=== PATIENT | female | born 1990 | race Caucasian/White ===

== ENCOUNTER → 2024-07-01 11:05 | Outpatient (REF) | payer OTHER, SELFPAY | LOC: HWRAD 11:05 | PROVIDERS: ATTENDING PHYSICIAN Student in an Organized Health Care Education/Training Program | DX: R22.1 Localized swelling, mass and lump, neck (principal) | CPT/HCPCS: 76536 ==

== ENCOUNTER 2024-08-16 15:29 | Emergency (ER) | payer OTHER, SELFPAY ==
[2024-08-16 15:42] VITALS: BP 157/79
[2024-08-16 16:11] LABS: % Basophils 0.4 % (0-2); % Eosinophils 3.5 % (0-6); % Immature Granulocytes 0.1 % (0-0.5); % Lymphocytes 19.9 % (20.5-51.1); % Monocytes 5.3 % (1.7-9.3); % Neutrophils 70.8 % (42.2-75.2); Absolute Eosinophils 0.3 10^3/uL (0-0.7); Absolute Lymphocytes 1.5 10^3/uL (1.2-3.4); Absolute Monocytes 0.4 10^3/uL (0.1-0.6); Absolute Neutrophils 5.2 10^3/uL (1.4-6.5); Hematocrit 39.8 % (37.0-47.0); Hemoglobin 13.4 g/dL (12.0-16.0); Mean Corp Hgb Conc. 33.7 g/dL (33.0-37.0); Mean Corpuscular Hgb 29.2 pg (27.0-31.0); Mean Corpuscular Volume 86.7 fL (81.0-99.0); Mean Platelet Volume 10.1 fL (7.4-10.4); Nucleated Red Blood Cells % 0 %; Platelet Count 333 10^3/uL (130-400); Red Blood Cell Count 4.59 10^6/uL (4.20-5.40); Red Cell Dist. Width 12.6 % (11.5-14.5); White Blood Cell Count 7.3 10^3/uL (4.8-10.8)
[2024-08-16 16:21] LABS: HCG, Serum Qualitative Screen Negative
[2024-08-16 16:26] LABS: ALT (SGPT) 16 U/L (0-35); AST (SGOT) 20 U/L (14-36); Albumin 4.6 g/dl (3.5-5.0); Alkaline Phosphatase 51 U/L (38-126); Blood Urea Nitrogen 13 mg/dl (7-17); Carbon Dioxide 27 mmol/L (22-30); Chloride 102 mmol/L (98-107); Glucose 117 mg/dl (70-99); Potassium 3.9 mmol/L (3.5-5.1); Sodium 139 mmol/L (135-145); Total Bilirubin 0.3 mg/dl (0.2-1.3); Total Protein 7.3 g/dl (6.3-8.2); eGFR > 60.00
[2024-08-16 16:33] LABS: Troponin I < 0.012 ng/ml
[2024-08-16 18:00] VITALS: BP 129/87
[2024-08-16 18:01] VITALS: BMI 32.4
--- NOTE | 2024-08-16 18:20 | EDRN ---
Dr. Schwartz in room w/pt at this time
[2024-08-16 19:16] LABS: TSH Reflex To Free T4 1.84 uIU/ml (0.47-4.68)
--- NOTE | 2024-08-16 19:22 | ED.GENMED ---
History of Present Illness
General
Chief Complaint: Heart Rate Problem
Time Seen by Provider: 08/16/24 18:01
History of Present Illness
History of Present Illness:
34-year-old female without significant past medical history presenting to the emergency department with palpitations. Patient reports prior to arrival she was at home and she was on her computer and got acute onset of palpitations. She had a pulse
ox at home, checked her heart rate, 140s. Notes she has had palpitations in the past, however never to this extent. She called the medics because she started to feel dizzy and lightheaded. By the time they arrived, her symptoms had improved.
Denies cardiac history. Denies history of blood clot, recent surgery, recent travel, exogenous estrogen. Denies any cardiac evaluation in the past. Denies any thyroid issues. Denies fever or recent illness. Denies additional acute medical
complaints
Phy Exam
Physical Exam
Physical Exam:
General: Well-appearing, no clinical signs of dehydration, nontoxic and in no acute distress
HEENT: protecting airway
Neck: appears supple
CV: Normal heart rate, regular rhythm, no evidence of cyanosis
Resp: No accessory muscle use, no increased work of breathing, lungs clear to auscultation bilaterally
Abd: Soft and non-distended, no tenderness to palpation, normal bowel sounds
Extremities: No deformities, no swelling, no erythema
Neuro: alert, no focal neurologic deficit
: deferred
Rectal: deferred
Psych: Normal affect
Skin: Intact
Course
Orders/Labs/Results
Orders:
Orders
08/16/24 15:29
ECG [Electrocardiogram (*1)] Urgent
Reason for Study: Palpitations
08/16/24 15:30
EKG- Treatment ONCE
08/16/24 15:47
Test Result ONCE
08/16/24 15:53
Complete Blood Count/With Diff Urgent
Comprehensive Metabolic Panel Urgent
HCG, Serum Qualitative Screen Urgent
Troponin I Urgent
08/16/24 18:25
Add On- LAB Urgent
Tests Added?: TSH w/ reflex
TSH Reflex To Free T4 Urgent
08/16/24 19:43
D-Dimer Urgent
08/16/24 20:11
CT Chest Pe Study Urgent
Comment:
Reason For Exam: palpitations, positive dimer
Abnormal Lab Results
08/16/24 08/16/24
15:53 19:43
Lymphocytes % 19.9 L %
(20.5-51.1)
D-Dimer 0.54 H ug/mlFEU
(0.00-0.50)
Glucose 117 H mg/dl
(70-99)
08/16/24 15:53
08/16/24 15:53
Vital Signs
Initial and Last Documented VS:
Initial Vital Signs
Temp Pulse Resp BP Pulse Ox
98 F 84 16 157/79 98
08/16/24 15:42 08/16/24 15:42 08/16/24 15:42 08/16/24 15:42 08/16/24 15:42
Last Documented Vital Signs
Temp Pulse Resp BP Pulse Ox
98 F 84 14 129/87 98
08/16/24 15:42 08/16/24 20:30 08/16/24 20:30 08/16/24 18:00 08/16/24 20:00
MDM/Problems Addressed
MDM/Problems Addressed:
34-year-old female presenting to the emergency department for palpitations. Vital signs on arrival are significant for hypertension, which resolved without intervention.
On exam patient is well-appearing, no acute distress or discomfort. Heart rate is currently controlled. Suspect possible isolated tachycardia versus SVT. Patient had laboratory analysis obtained prior to my assessment, normal electrolyte panel.
Will add on a D-dimer as well as a thyroid level.
20:10 - Labs unremarkable, undetectable troponin, normal thyroid. Dimer slightly elevated. For this reason we will proceed with CT chest
22:10 - CT without evidence of PE. At this time no concern for any severe etiology to patient's symptoms. Feel stable for discharge with outpatient cardiac follow-up for likely Holter monitor. Will provide information for cardiology. Return
precautions discussed and patient verbalized understanding
*EKG
Interpreted by ED Provider?: Yes
EKG Intrepretation Date: 08/16/24
EKG Intrepretation Time: 19:30
Interpretation: normal
Comparison EKG: no changes
Heart Rate: 88
Rate: normal
Rhythm: sinus
[place]: normal axis
Interval: normal interval
QRS Pattern: normal QRS
Ischemia: no ischemia
*Critical Care Note
Total Time (30-74mins, 75-104mins- exclusive of procedures): Not Applicable
ED Attending Note
-
Portions of this chart may have been created with voice recognition software.� Occasional wrong word or��sound alike� substitutions may have occurred due to the inherent limitations of voice recognition software.
Discharge Plan
Departure
Patient with high blood pressure during this ER visit?: No
Condition: Good
Discharge Problem:
Heart palpitations
Instructions: Palpitations (DC)
Prescriptions:
No Action
PNV cmb#95-ferrous fumarate-FA [ Multivitamins] 28 mg iron- 800 mcg Tablet
1 tab PO DAILY
magnesium Tablet
1 tab PO DAILY
acetaminophen 325 mg Tablet
650 mg PO Q4HPRN PRN (Reason: mild pain) Qty: 20 0RF
ibuprofen 600 mg Tablet
600 mg PO Q6HPRN PRN (Reason: moderate pain/cramps) Qty: 20 0RF
Referrals:
Tamie Modi MD, Resident [Family Provider] -
Mendel Sandoval DO [Active] - (palpitations)
Activity Restrictions/Additional Instructions:
You were seen in the emergency department for palpitations
You were found to have laboratory analysis and CT imaging of your chest. Please follow-up with the occupational therapy program director for potential Holter monitoring
Please follow-up closely with your primary care physician.
Return to the emergency department for any worsening of your symptoms, or any development of chest pain, difficulty breathing, abdominal pain with persistent vomiting and inability to tolerate food or liquid by mouth (concern for dehydration),
weakness, headache or confusion, fever greater than 100.4, or any additional symptoms that are concerning to you.
Thank you for choosing [facility].
Interventions
Interventions:
*Risk Screen - Suicide Last Done: 08/16/24 15:46
*General Assessment Last Done: 08/16/24 17:57
*Neglect/Abuse Screening Last Done: 08/16/24 15:46
ED- Fall Risk Assessment Last Done: 08/16/24 17:57
*ED COVID-19 Vaccine History Last Done: 08/16/24 15:46
ED- Cardiac Assessment Last Done: 08/16/24 17:57
ED- Pulmonary Assessment Last Done: 08/16/24 17:57
Discharge Date and Time
Print Language: IRISH
[2024-08-16 20:04] LABS: D-Dimer 0.54 ug/mlFEU (0.00-0.50)
[2024-08-16 22:34] VITALS: BP 132/60
== END 2024-08-16 22:38 | disposition home or self-care (01) ==
LOC: EMR 15:29
PROVIDERS: Emergency Medicine; EMERGENCY PHYSICIAN Student in an Organized Health Care Education/Training Program; FAMILY PHYSICIAN Student in an Organized Health Care Education/Training Program
DX: R00.2 Palpitations (principal)
CPT/HCPCS: 99285; 71275; 80053; 84443; 84484; 84703; 85025; 85379; 93005; Q9967

== ENCOUNTER → 2024-09-14 10:07 | Outpatient (REF) | payer OTHER, SELFPAY | LOC: RCS 10:07 | PROVIDERS: ATTENDING PHYSICIAN Internal Medicine Cardiovascular Disease; FAMILY PHYSICIAN Student in an Organized Health Care Education/Training Program | DX: R00.2 Palpitations (principal); R06.02 Shortness of breath | CPT/HCPCS: 93017 ==

== ENCOUNTER → 2024-09-30 14:53 | Outpatient (REF) | payer OTHER, SELFPAY | LOC: HWRCS 14:53 | PROVIDERS: ATTENDING PHYSICIAN Internal Medicine Cardiovascular Disease; FAMILY PHYSICIAN Student in an Organized Health Care Education/Training Program | DX: R00.0 Tachycardia, unspecified (principal); R06.02 Shortness of breath | CPT/HCPCS: 93306 ==

== ENCOUNTER 2024-11-20 20:00 | Emergency (ER) | payer OTHER, SELFPAY ==
[2024-11-20 20:02] VITALS: BP 156/96
--- NOTE | 2024-11-20 22:54 | ED.GENMED ---
History of Present Illness
General
Chief Complaint: Back Pain
Source: patient
Time Seen by Provider: 11/20/24 22:01
History of Present Illness
History of Present Illness:
74-year-old female presenting to the emergency department for evaluation after she woke up a few days ago with some mild back discomfort, went to her chiropractor on and during the adjustment felt worsening pain to the middle of her spine
within the thoracic region and states since that time has had gradual discomfort. Patient states yesterday she awoke to a throbbing/stabbing pain in the outside of her left foot that seem to go away when she laid in a certain position. Patient
states she decided to come to the ER this evening after taking a [place] salt bath and not having much relief. She denies any fevers, bowel or urinary incontinence, saddle anesthesia, focal weakness or numbness, chest pain or shortness of breath or
any other concerns at this time. Denies any risks for acute infectious etiologies. No other concerns presently.
Past History
Past History
ED Past Medical History: Asthma and GERD
ED Past Surgical History: Tonsilectomy and Other
Social History
Tobacco: Non-smoker
Alcohol: None
Drug: None
Personal:
Living: with family
Review of Systems
Review of Systems
All Other Systems: ROS reviewed and negative except as documented in HPI and ROS
Phy Exam
Physical Exam
Physical Exam:
GENERAL: Alert , in no apparent distress, ambulatory with steady gait
EYE: clear conjunctiva b/l
NECK: Supple
ENT: o/p clr, mmm.
BACK: Normal range of motion, generalized tenderness within the left thoracic area around the scapula, no midline bony tenderness, no rashes
NEUROLOGICAL: Alert and oriented, no focal neuro deficits. Patellar deep tendon reflexes intact and equal bilaterally, sensation grossly intact and equal to light touch bilateral lower extremities
SKIN: Warm and dry, skin intact.
MUSCULOSKELETAL: No edema, well perfused. EHL intact bilaterally
PSYCH: Normal and appropriate interaction.
Scores
Heart Failure Risk
Heart Failure Risk Score: Not Applicable
Heart Score for Chest Pain Patients
STEMI patient?: Not applicable
Withdrawal Assessment of Alcohol
Withdrawal Assessment Completed?: Not applicable
Course
Orders/Labs/Results
Orders:
Orders
11/20/24 22:15
CR Thoracic Spine 3 Views Urgent
Comment:
Reason For Exam: upper back pain
Vital Signs
Initial and Last Documented VS:
Initial Vital Signs
Temp Pulse Resp BP Pulse Ox
97.8 F 96 18 156/96 98
11/20/24 20:02 11/20/24 20:02 11/20/24 20:02 11/20/24 20:02 11/20/24 20:02
Last Documented Vital Signs
Temp Pulse Resp BP Pulse Ox
97.8 F 78 16 116/80 98
11/20/24 20:02 11/20/24 23:05 11/20/24 23:05 11/20/24 23:05 11/20/24 23:05
MDM/Problems Addressed
Differential Diagnosis Includes:
Thoracic strain, contusion, disc herniation/nerve impingement, I do not have concern for infectious etiology nor neurogenic claudication
MDM/Problems Addressed:
34-year-old female presenting to the ER for back pain that has been ongoing for the last few days, worse after chiropractic adjustment. No focal tenderness or acute neurological findings on exam. X-ray ordered which does not show any acute
abnormalities. No fractures. No malalignment. NSAIDs/topical agents as needed. Otherwise stable for discharge home.
*Radiology
Radiology exam reviewed: preliminary read by ED provider (No fracture or malalignment)
*Pulse Oximetry
Patient hypoxic: no
*Critical Care Note
Total Time (30-74mins, 75-104mins- exclusive of procedures): Not Applicable
ED Attending Note
-
Portions of this chart may have been created with voice recognition software.� Occasional wrong word or��sound alike� substitutions may have occurred due to the inherent limitations of voice recognition software.
Discharge Plan
Departure
Patient Disposition: Home (Routine Discharge)
Date of Disposition: 11/20/24
Time of Disposition: 22:54
Patient with high blood pressure during this ER visit?: Yes
Discharge Problem:
Dorsalgia of thoracic region
Instructions: Upper Back Pain (DC)
Prescriptions:
No Action
PNV cmb#95-ferrous fumarate-FA [ Multivitamins] 28 mg iron- 800 mcg Tablet
1 tab PO DAILY
magnesium Tablet
1 tab PO DAILY
acetaminophen 325 mg Tablet
650 mg PO Q4HPRN PRN (Reason: mild pain) Qty: 20 0RF
ibuprofen 600 mg Tablet
600 mg PO Q6HPRN PRN (Reason: moderate pain/cramps) Qty: 20 0RF
Referrals:
Tamie Modi MD, Resident [Family Provider] -
Interventions
Interventions:
*Risk Screen - Suicide Last Done: 11/20/24 20:04
*General Assessment Last Done: 11/20/24 23:08
*Neglect/Abuse Screening Last Done: 11/20/24 20:04
*ED- Fall Risk Assessment Last Done: 11/20/24 20:04
*ED COVID-19 Vaccine History Last Done: 11/20/24 20:04
*Nursing Disposition Last Done: 11/20/24 23:08
ED-Musculoskeletal Assessment Last Done: 11/20/24 23:05
Discharge Date and Time
Discharge Date/Time: 11/20/24 23:08
Print Language: ARG[place]
[2024-11-20 23:05] VITALS: BP 116/80
== END 2024-11-20 23:08 | disposition home or self-care (01) ==
LOC: EMR 20:00
PROVIDERS: EMERGENCY PHYSICIAN Emergency Medicine; FAMILY PHYSICIAN Student in an Organized Health Care Education/Training Program
DX: M54.6 Pain in thoracic spine (principal); J45.909 Unspecified asthma, uncomplicated; K21.9 Gastro-esophageal reflux disease without esophagitis
CPT/HCPCS: 99283; 72072